=== PATIENT | male | born 1995 | race Caucasian/White ===

== ENCOUNTER 2020-03-21 18:12 | Emergency (ER) | payer OTHER ==
[~2020-03-21] VITALS: Ht 177.8 cm; Wt 74.8 kg
[2020-03-21 19:01] LABS: URINE BILIRUBIN NEGATIVE (Negative); URINE BLOOD NEGATIVE (Negative); URINE CLARITY CLEAR; URINE COLOR YELLOW; URINE GLUCOSE-RANDOM NEGATIVE (Negative); URINE KETONES NEGATIVE (Negative); URINE LEUKOCYTES-REFLEX NEGATIVE (Negative); URINE NITRITE-REFLEX NEGATIVE (Negative); URINE PROTEIN NEGATIVE (Negative); URINE SPECIFIC GRAVITY 1.025 (1.005-1.030); URINE UROBILINOGEN 0.2 E.U./dl (0.2-1.0)
[2020-03-21 19:09] LABS: ABSOLUTE EOSINOPHILS 0.1 thou/uL (0.0-0.7); ABSOLUTE LYMPHOCYTES 2.3 thou/uL (0.8-5.3); ABSOLUTE MONOCYTES 0.6 thou/uL (0.0-1.2); ABSOLUTE NEUTROPHILS 3.7 thou/uL (1.6-8.1); BASOPHILS 0.5 %; EOSINOPHILS 1.5 %; HEMATOCRIT 43.1 % (42.0-52.0); HEMOGLOBIN 14.8 gm/dL (14.0-18.0); LYMPHOCYTES 34.4 %; MCH 32.1 pg (26.0-34.0); MCHC 34.4 g/dL (28.0-37.0); MCV 93.2 fL (80.0-100.0); MONOCYTES 8.5 %; NUCLEATED RBCS 0 /100WBC; PLATELET COUNT* 274 thou/uL (150-400); POLYS 55.1 %; RBC 4.62 mil/uL (4.50-6.00); WBC 6.8 thou/uL (4.0-11.0)
[2020-03-21 19:16] LABS: CALCIUM 8.6 mg/dL (8.5-10.1); POTASSIUM 4.1 mmol/L (3.5-5.1)
[2020-03-21 19:21] LABS: ALBUMIN 4.3 g/dL (3.4-5.0); TOTAL BILIRUBIN 0.5 mg/dL (<0.1-1.0); TOTAL PROTEIN 7.7 g/dL (6.4-8.2)
[2020-03-21] MEDS ORDERED: NAPROSYN500 MG PO (20:06)
[2020-03-21 20:44] VITALS: BP 95/47
== END 2020-03-21 20:44 | disposition home or self-care (01) ==
LOC: M.ERS 18:12
PROVIDERS: Nurse Practitioner Family
DX: N43.3 Hydrocele, unspecified (principal); M54.9 Dorsalgia, unspecified

== ENCOUNTER 2021-03-28 15:53 | Inpatient (IN) | payer OTHER ==
[~2021-03-28] VITALS: Ht 177.8 cm; Wt 84.8 kg
[~2021-03-28 15:53] MED LIST: NAPROSYN500 MG PO
[2021-03-28 16:00] VITALS: BP 131/64
[2021-03-28 17:08] LABS: ABSOLUTE EOSINOPHILS 0.1 thou/uL (0.0-0.7); ABSOLUTE LYMPHOCYTES 1.7 thou/uL (0.8-5.3); ABSOLUTE MONOCYTES 0.5 thou/uL (0.0-1.2); ABSOLUTE NEUTROPHILS 2.1 thou/uL (1.6-8.1); BASOPHILS 0.6 %; EOSINOPHILS 1.6 %; HEMATOCRIT 40.5 % (42.0-52.0); HEMOGLOBIN 14.1 gm/dL (14.0-18.0); LYMPHOCYTES 38.5 %; MCHC 34.8 g/dL (28.0-37.0); MONOCYTES 11.9 %; NUCLEATED RBCS 0 /100WBC; PLATELET COUNT* 237 thou/uL (150-400); POLYS 47.4 %; RDW-CV 12.9 % (10.5-14.5); WBC 4.4 thou/uL (4.0-11.0)
[2021-03-28 17:22] LABS: CALCIUM 8.3 mg/dL (8.5-10.1); CREATININE 0.7 mg/dL (0.6-1.3)
[2021-03-28 17:29] LABS: ALBUMIN 3.7 g/dL (3.4-5.0); MAGNESIUM 1.9 mg/dL (1.8-2.4); TOTAL BILIRUBIN 0.4 mg/dL (<0.1-1.0); TOTAL PROTEIN 7.1 g/dL (6.4-8.2)
[2021-03-28 20:55] VITALS: BP 118/68
[2021-03-28 21:30] VITALS: BP 127/75
[2021-03-29] VITALS (7 sets, daily range): BP systolic 107–120; BP diastolic 51–71
[2021-03-29 04:20] LABS: URINE BILIRUBIN NEGATIVE (Negative); URINE BLOOD NEGATIVE (Negative); URINE CLARITY CLEAR; URINE COLOR YELLOW; URINE GLUCOSE-RANDOM NEGATIVE (Negative); URINE KETONES NEGATIVE (Negative); URINE LEUKOCYTES-REFLEX NEGATIVE (Negative); URINE NITRITE-REFLEX NEGATIVE (Negative); URINE PROTEIN NEGATIVE (Negative); URINE SPECIFIC GRAVITY 1.015 (1.005-1.030); URINE UROBILINOGEN 0.2 E.U./dl (0.2-1.0)
[2021-03-29 04:33] LABS: AMP/METHAMP Negative (Negative); BARBITURATES Negative (Negative); BENZODIAZEPINES Negative (Negative); COCAINE Negative (Negative); METHADONE Negative (Negative); OPIATES Negative (Negative); PCP Negative (Negative); THC Negative (Negative)
[2021-03-29 05:52] LABS: HEMATOCRIT 40.5 % (42.0-52.0); HEMOGLOBIN 14.2 gm/dL (14.0-18.0); MCV 91.4 fL (80.0-100.0); MPV 8.5 fl. (7.2-11.1); RBC 4.44 mil/uL (4.50-6.00); RDW-CV 12.7 % (10.5-14.5); WBC 7.3 thou/uL (4.0-11.0)
[2021-03-29 06:08] LABS: CALCIUM 8.2 mg/dL (8.5-10.1); CREATININE 0.8 mg/dL (0.6-1.3); POTASSIUM 3.9 mmol/L (3.5-5.1)
--- NOTE | 2021-03-29 11:59 | EKG ---
[place] [address] ELECTROCARDIOGRAM REPORT Name: CHAIM PAUL Room: [place] [address] ADM IN R.#: [id number] Admission: 03/28/21 Attend Phys: Jose Alberto Hawkins Discharge: Date of : 89 Date of Service: 03/28/21 1607 Report #: [id number] THIS REPORT FOR: //name// [facility] ED Test Date: 2021-03-28 Test Time: 16:07:07 Pat Name: CHAIM PAUL Department: Room: [facility] Gender: M Pediatric Rn: KATE : 1995 Requested By: Jacob Rodrigues Order Number: [id number] MD: En Jameson Measurements Intervals [place] Rate: 64 P: 41 AL: 153 QRS: 79 QRSD: 100 T: 41 QT: 395 QTc: 408 Interpretive Statements Sinus rhythm Probable left atrial enlargement ST elev, probable normal early repol pattern No previous ECG available for comparison Electronically Signed On 03-29-2021 11:58:54 CDT by En Jameson [email or web address] <ELECTRONICALLY SIGNED> By: En Jameson MD, [facility] 03/29/21 1158 1607 1607 En Jameson MD, [facility] /EPI
--- NOTE | 2021-03-29 13:44 | 2DMMODE ---
[place] [address] 2 D/M-MODE ECHOCARDIOGRAM Name: CHAIM PAUL Room: [facility] ADM IN Atilio#: [id number] Admission: 03/28/21 Attend Phys: Jose Alberto Hawkins Discharge: Date of : 89 Date of Service: 03/29/21 1344 Report #: [id number] THIS REPORT FOR: cc: FAM - No family physician/PCP FAM - No family physician/PCP En Jameosn MD [facility] ~ APPROVED REPORT Study performed: 03/29/2021 09:37:33 EXAM: Comprehensive 2D, Doppler, and color-flow Echocardiogram Patient Location: In-Patient Room #: [facility] Status: routine BSA: 1.92 HR: 54 bpm BP: 118/65 mmHg Rhythm: NSR Other Information Study Quality: Excellent Indications Chest Pain 2D Dimensions IVSd: 9.78 (7-11mm) LVOT Diam: 20.47 (18-24mm) LVDd: 47.95 mm PWd: 10.97 (7-11mm) Ascending Ao: 26.80 (22-36mm) LVDs: 31.26 (25-40mm) Aortic Root: 29.96 mm Volumes Left Atrial Volume (Systole) LA ESV Index: 23.60 mL/m2 Aortic Valve AoV Peak Darrick.: 1.05 m/s AO Peak Gr.: 4.42 mmHg LVOT Max P.64 mmHg AO Mean Gr.: 2.32 mmHg LVOT Mean P.24 mmHg LVOT Max V: 0.81 m/s AO V2 VTI: 21.83 cm LVOT Mean V: 0.51 m/s EDWARDO (VTI): 2.89 cm2 LVOT V1 VTI: 19.16 [place] [address] 2 D/M-MODE ECHOCARDIOGRAM Name: CHAIM PAUL Room: [address] IN [facility]#: [id number] Admission: 03/28/21 Attend Phys: Jose Alberto Hawkins Discharge: Date of : 89 Date of Service: 03/29/21 1344 Report #: [id number] Mitral Valve E/A Ratio: 1.91 MV Decel. Time: 171.97 ms MV E Max Darrick.: 0.82 m/s MV PHT: 49.87 ms MVA (PHT): 4.41 cm2 TDI E/Lateral E': 4.82 E/Medial E': 5.86 Medial E' Darrick.: 0.14 m/s Lateral E' Darrick.: 0.17 m/s Pulmonary Valve PV Peak Darrick.: 0.85 m/s PV Peak Gr.: 2.89 mmHg Left Ventricle The left ventricle is normal size. There is normal LV segmental wall motion. There is normal left ventricular wall thickness. Left ventricular systolic function is normal. The left ventricular ejection fraction is within the normal range. LVEF is 60-65%. The left ventricular diastolic function is normal. Right Ventricle The right ventricle is normal size. The right ventricular systolic function is normal. Atria The left atrium size is normal. The right atrium size is normal. Aortic Valve The aortic valve is normal in structure. No aortic regurgitation is present. There is no aortic valvular stenosis. Mitral Valve The mitral valve is normal in structure. Trace mitral regurgitation. No evidence of mitral valve stenosis. Tricuspid Valve The tricuspid valve is normal in structure. Trace tricuspid regurgitation. Unable to assess PA pressure. Pulmonic Valve The pulmonary valve is normal in structure. [place] [address] 2 D/M-MODE ECHOCARDIOGRAM Name: CHAIM PAUL Kelly Room: [address] IN [facility]#: [id number] Admission: 03/28/21 Attend Phys: Jose Alberto Hawkins Discharge: Date of : 89 Date of Service: 03/29/21 1344 Report #: [id number] Great Vessels The aortic root is normal in size. IVC is normal in size and collapses >50% with inspiration. Pericardium There is no pericardial effusion. <Conclusion> Left ventricular systolic function is normal. The left ventricular ejection fraction is within the normal range. There is no pericardial effusion. <ELECTRONICALLY SIGNED> By: En Jameson MD, FACC 03/29/21 1344 1344 1344 En Jameson MD, FACC /INF
--- NOTE | 2021-03-29 16:39 | CON ---
[address] [address] CONSULTATION Name: CHAIM PAUL Room: [address] IN [place].#: [id number] Admission: 03/28/21 Attend Phys: Kelly Cevallos Discharge: Date of : [birth year] Report #: [id number] THIS REPORT FOR: cc: FAM - No family physician/PCP FAM - No family physician/PCP En Jameson MD [facility] ~ DOC #: [id number] En Jameson MD [facility] DATE OF CONSULTATION: 03/29/2021 CARDIOLOGY CONSULTATION HISTORY OF PRESENT ILLNESS: The patient is a 25-year-old single white male who I was asked to see in the hospital after a complaint of chest pain. The patient has no previous history of heart disease. He stays very active. He is currently in the [employer]. He exercises on a regular basis. He was doing well until about a week ago he was out mowing the yard when he felt short of breath. The next day, he felt somewhat bloated. For the past 3 days, he had watery diarrhea. This subsequently resolved. However, he awakened at 3 in the morning 2 nights ago with a sharp chest pain. It tended to come and go. Yesterday because of chest pain, he was brought to the emergency room and admitted for further evaluation and treatment. He denied the pain being related to food. He has had no fever, cough, trauma to his chest. He denied any rash. He denied any shortness of breath, palpitations, syncope, leg pain. PAST MEDICAL HISTORY: He had circumcision as a child. He had foot surgery. No history of hypertension, diabetes, hyperlipidemia. He is on no medication. ALLERGIES: Has no known drug allergies. FAMILY HISTORY: Negative for heart disease. SOCIAL HISTORY: He is single, currently engaged. He works night at [employer]. No smoking. Rarely drinks alcohol. REVIEW OF SYSTEMS: No history of stroke, asthma, liver disease, kidney disease, cancer, psychiatric illness, chronic skin condition. PHYSICAL EXAMINATION: GENERAL: Revealed a young white male, lying in bed, appeared in no distress. VITAL SIGNS: He had a blood pressure of 120/60, pulse 60. He is afebrile. HEENT: He was anicteric. Conjunctivae pink. Mucosa is moist. NECK: Veins were not distended. No carotid bruits. Neck supple. CHEST: Clear to auscultation. CARDIOVASCULAR: Regular rate and rhythm without [place] [address] CONSULTATION Name: CHAIM PAUL Kelly Room: [address] IN [facility]#: [id number] Admission: 03/28/21 Attend Phys: Kelly Cevallos Discharge: Date of : 89 Report #: [id number] ABDOMEN: Soft. EXTREMITIES: No edema, no Homans sign. Posterior tibial pulse 1+ bilaterally. SKIN: Cool and dry. NEUROLOGIC: Nonfocal. IMAGING: His ECG on admission showed sinus rhythm, early repolarization changes noted. His workup, he had a chest x-ray in the emergency room that showed normal heart size and clear lung gray. He actually had a CT scan of the abdomen because of his diarrhea that showed no acute abnormality. LABORATORY WORK: Sodium 138, potassium 3.9, creatinine 0.8. SGOT 50, SGPT 83, alkaline phosphatase 56. His troponin was initially 1.65 that peaked at 2.56. His hemoglobin 14.2. His COVID antigen stat test was negative. Urinalysis negative for protein, negative for leukocytes. IMPRESSION AND RECOMMENDATIONS: 1. Chest pain. No rub noted. No ECG changes noted. The patient noted to have elevated troponin. Possible myocarditis. I would check an echocardiogram. I would not recommend stress testing at this time. 2. Recent episode of diarrhea that appears resolved. 3. Shortness of breath. Recommend echocardiogram. En Jameson MD [facility] PHILLIP/[place] <ELECTRONICALLY SIGNED> By: En Jameson MD, [facility] 03/29/21 1639 1127 [id number] Jameson MD, [facility] /nt
[2021-03-30 03:49] VITALS: BP 108/59
[2021-03-30 05:46] LABS: ANION GAP 3 mmol/L (7-16); BUN 19 mg/dL (7-18); CALCIUM 8.6 mg/dL (8.5-10.1); CHLORIDE 104 mmol/L (98-107); CHOLESTEROL 140 mg/dL (<200); CO2 32 mmol/L (21-32); CREATININE 1.1 mg/dL (0.6-1.3); GLUCOSE 97 mg/dL (70-99); HDL CHOLESTEROL 36 mg/dL (>40); LDL CHOLESTEROL 95 mg/dL (<100); SODIUM 139 mmol/L (136-145); TC:HDL 3.9 Ratio (Not establshd); TRIGLYCERIDE 46 mg/dL (<150); VLDL 9 mg/dL (<40)
[2021-03-30 05:49] LABS: HEMATOCRIT 40.6 % (42.0-52.0); HEMOGLOBIN 14.2 gm/dL (14.0-18.0); MCH 31.7 pg (26.0-34.0); MCV 90.3 fL (80.0-100.0); MPV 8.8 fl. (7.2-11.1); RBC 4.5 mil/uL (4.50-6.00); RDW-CV 12.6 % (10.5-14.5); WBC 5.8 thou/uL (4.0-11.0)
[2021-03-30 05:59] LABS: SERUM ASSESSMENT Clear; TROPONIN-I LEVEL 1.01 ng/mL (<0.06)
[2021-03-30 08:25] VITALS: BP 105/56
[2021-03-30 12:00] VITALS: BP 121/70
[2021-03-30 14:49] VITALS: BP 121/70
[2021-03-30 14:58] VITALS: BP 121/70
== END 2021-03-30 15:15 | disposition home or self-care (01) | DRG 315 ==
LOC: M.ERS 15:53 → M.TBA-ER 17:38 → M.2W 17:38
PROVIDERS: Emergency Medicine Emergency Medical Services; Family Medicine; Physician Assistant; ADMIT Internal Medicine; ATTEND Internal Medicine
DX: I40.9 Acute myocarditis, unspecified (principal); A09 Infectious gastroenteritis and colitis, unspecified; E11.9 Type 2 diabetes mellitus without complications; E78.5 Hyperlipidemia, unspecified; Z20.822 Contact with and (suspected) exposure to COVID-19; Z79.899 Other long term (current) drug therapy

== ENCOUNTER 2021-05-06 23:58 | Emergency (ER) | payer OTHER ==
[~2021-05-06] VITALS: Ht 177.8 cm; Wt 84.4 kg
[2021-05-07 00:20] VITALS: BP 140/92
--- NOTE | 2021-05-07 15:39 | EKG ---
[place] [address] ELECTROCARDIOGRAM REPORT Name: CHAIM PAUL Room: [facility]#: [id number] Admission: 05/06/21 Attend Phys: Discharge: 05/07/21 Date of : 89 Date of Service: 05/07/21 0045 Report #: [id number] THIS REPORT FOR: //name// [facility] ED Test Date: 2021-05-07 Test Time: 00:45:33 Pat Name: CHAIM PAUL Department: Room: Gender: Company Marker: [place] : 1995 Requested By: Dalyin Cool Order Number: [id number] MD: Deejay Mitchell Measurements Intervals [place] Rate: 74 P: 43 [place]: 149 QRS: 85 QRSD: 103 T: 16 QT: 367 QTc: 408 Interpretive Statements Sinus rhythm Left atrial enlargement Compared to ECG 03/28/2021 16:07:07 ST (T wave) deviation no longer present Electronically Signed On 05-07-2021 15:39:12 CDT by Deejay Mitchell [email or web address] <ELECTRONICALLY SIGNED> By: Deejay Mitchell MD, [facility] 05/07/21 1539 0045 0045 Deejay Mitchell MD, [facility] /EPI
== END 2021-05-07 01:00 | disposition left against medical advice (07) ==
LOC: M.ERS 23:58
DX: Z53.21 Procedure and treatment not carried out due to patient leaving prior to being seen by health care provider (principal)